=== PATIENT | female | born 1985 | race Hispanic/Latino ===

== ENCOUNTER 2020-09-11 06:35 | Emergency (ER) | payer MEDICAID ==
[2020-09-11 06:51] VITALS: BP 112/65
[2020-09-11 07:37] LABS: Basophils % (Auto) 0.7 % (0.0-1.8); Eosinophils # (Auto) 0.3 K/mm3 (0.0-0.4); Eosinophils % (Auto) 4.4 % (0.0-4.3); Hematocrit 40.8 % (30.3-42.9); Hemoglobin 14.1 gm/dl (10.1-14.3); Lymphocytes # (Auto) 1.7 K/mm3 (1.2-5.4); Lymphocytes % (Auto) 26.6 % (13.4-35.0); Mean Corpuscular HGB Conc 35 % (30-34); Mean Corpuscular Volume 101 fl (79-97); Monocytes # (Auto) 0.6 K/mm3 (0.0-0.8); Monocytes % (Auto) 8.7 % (0.0-7.3); Platelet Count 268 K/mm3 (140-440); Red Blood Count 4.05 M/mm3 (3.65-5.03); Red Cell Distribution Width 12.3 % (13.2-15.2)
[2020-09-11 07:46] LABS: Bilirubin,Urine NEG (Negative); Blood,Urine LG (Negative); Color,Urine Yellow (Yellow); Hyaline Casts,Urine 1 /LPF; Mucus,Urine FEW /HPF; Protein,Urine <15 mg/dL mg/dL (Negative); Urobilinogen,Urine < 2.0 mg/dL (<2.0)
--- NOTE | 2020-09-11 07:53 | Emergency Department Report ---
ED Female HPI - General Chief complaint: Vaginal Bleeding Stated complaint: TUBES TIDE//HEAVY BLEEDING/PAIN Time Seen by Provider: 09/11/20 07:51 Source: patient Mode of arrival: Ambulatory Limitations: No Limitations - History of Present Illness Initial comments: Patient is a pleasant 35-year-old that comes to the emergency room because she was told that she was yesterday. She states that her SENIOR HUMAN RESOURCES REPRESENTATIVE told her this. She states that this is after having a urine test. However, the patient had a tubal numerous years ago. So she comes to the ER to validate the . For she is also having menstrual bleeding. Patient denies any dysuria. She denies any vaginal discharge. She denies back pain or abdominal pain. Patient is ambulatory nontoxic and [id number] on arrival to the ER. -: Gradual, days(s) Improves with: none Worsens with: none Associated Symptoms: denies other symptoms - Related Data Sexually active: Yes Allergies Allergy/AdvReac Type Severity Reaction Status Date / Time No Known Allergies Allergy Verified 08/06/15 11:42 ED Review of Systems ROS: Stated complaint: TUBES TIDE//HEAVY BLEEDING/PAIN Other details as noted in HPI Comment: All other systems reviewed and negative ED Past Medical Hx - Past Medical History Previous Medical History?: Yes Hx Hypertension: No Hx Headaches / Migraines: Yes (occas migraine) Hx Kidney Stones: Yes Hx Psychiatric Treatment: Yes (bipolar and anxiety noncompliant 10 years ago) Hx Asthma: No - Surgical History Past Surgical History?: Yes Additional Surgical History: Tubal Ligation 5 years ago - Family History Family history: no significant - Social History Smoking Status: Current Every Day Smoker Substance Use Type: None ED Physical Exam - General Limitations: No Limitations General appearance: alert, in no apparent distress - Head Head exam: Present: atraumatic, normocephalic - Eye Eye exam: Present: normal appearance - ENT ENT exam: Present: mucous membranes moist - Neck Neck exam: Present: normal inspection - Respiratory Respiratory exam: Present: normal lung sounds bilaterally. Absent: respiratory distress - Cardiovascular Cardiovascular Exam: Present: regular rate, normal rhythm. Absent: systolic murmur, diastolic murmur, rubs, gallop - GI/Abdominal GI/Abdominal exam: Present: soft, normal bowel sounds - Extremities Exam Extremities exam: Present: normal inspection - Back Exam Back exam: Present: normal inspection - Neurological Exam Neurological exam: Present: alert, oriented X3 - Psychiatric Psychiatric exam: Present: normal affect, normal mood - Skin Skin exam: Present: warm, dry, intact, normal color. Absent: rash ED Course Vital Signs 09/11/20 06:50 Temperature 98.8 F Pulse Rate 84 Respiratory 20 Rate Blood Pressure 112/65 [Right] O2 Sat by Pulse 98 Oximetry ED Medical Decision Making - Lab Data Result diagrams: 09/11/20 07:21 09/11/20 08:03 - Radiology Data Radiology results: report reviewed, image reviewed - Medical Decision Making Labs 09/11/20 09/11/20 09/11/20 07:21 07:21 07:21 WBC 6.4 RBC 4.05 Hgb 14.1 Hct 40.8 MCV 101 H MCH 35 H MCHC 35 H RDW 12.3 L Plt Count 268 Lymph % (Auto) 26.6 Stanton % (Auto) 8.7 H Eos % (Auto) 4.4 H Baso % (Auto) 0.7 Lymph # (Auto) 1.7 Stanton # (Auto) 0.6 Eos # (Auto) 0.3 Baso # (Auto) 0.0 Seg Neutrophils % 59.6 Seg Neutrophils # 3.8 Sodium Potassium Chloride Carbon Dioxide Anion Gap BUN Creatinine Estimated GFR BUN/Creatinine Ratio Glucose Calcium HCG, Quant 3.38 Urine Color Urine Turbidity Urine pH Ur Specific [place] Urine Protein Urine Glucose (UA) Urine Ketones Urine Blood Urine Nitrite Urine Bilirubin Urine Urobilinogen Ur Leukocyte Esterase Urine WBC (Auto) Urine RBC (Auto) U Epithel Cells (Auto) Hyaline Casts Urine Mucus Blood Type O POSITIVE 09/11/20 09/11/20 08:03 Unknown WBC RBC Hgb Hct MCV MCH MCHC RDW Plt Count Lymph % (Auto) Stanton % (Auto) Eos % (Auto) Baso % (Auto) Lymph # (Auto) Stanton # (Auto) Eos # (Auto) Baso # (Auto) Seg Neutrophils % Seg Neutrophils # Sodium 140 Potassium 4.1 Chloride 104.2 Carbon Dioxide 26 Anion Gap 14 BUN 12 Creatinine 0.8 Estimated GFR > 60 BUN/Creatinine Ratio 15 Glucose 89 Calcium 9.3 HCG, Quant Urine Color Yellow Urine Turbidity Clear Urine pH 5.0 Ur Specific [place] 1.016 Urine Protein <15 mg/dl Urine Glucose (UA) Neg Urine Ketones Neg Urine Blood Lg Urine Nitrite Neg Urine Bilirubin Neg Urine Urobilinogen < 2.0 Ur Leukocyte Esterase Neg Urine WBC (Auto) 3.0 Urine RBC (Auto) 65.0 U Epithel Cells (Auto) 2.0 Hyaline Casts 1 Urine Mucus Few Blood Type Vital Signs 09/11/20 06:50 Temperature 98.8 F Pulse Rate 84 Respiratory 20 Rate Blood Pressure 112/65 [Right] O2 Sat by Pulse 98 Oximetry Quant hCG is less than 5. Labs noted. UA noted. Ultrasound noted to be normal. Patient being discharged home with discharge plan of care. Have given her referral to a new SENIOR HUMAN RESOURCES REPRESENTATIVE and encouraged her to follow-up with them next week to follow her given this conflicting test. She verbalizes understanding. On dis charge she is ambulatory, nontoxic [id number]. - Differential Diagnosis RO PREG/AB/UTERINE FIBROID Critical care attestation.: If time is entered above; I have spent that time in minutes in the direct care of this critically ill patient, excluding procedure time. ED Disposition Clinical Impression: Menses painful Disposition: - TO HOME OR SELFCARE Is pt being admited?: No Does the pt Need Aspirin: No Condition: Stable Instructions: Dysmenorrhea Additional Instructions: BLOOD PREG NEGATIVE ULTRASOUND NEGATIVE/NORMAL FOLLOW UP WITH OBGYN Referrals: FAMILIA WATERS MD [Staff Physician] - 3-5 Days Time of Disposition: 10:27
[2020-09-11 08:39] LABS: BUN/Creatinine Ratio 15; Blood Urea Nitrogen 12 mg/dL (7-17); Calcium 9.3 mg/dL (8.4-10.2); Hemolysis Index 8
--- NOTE | 2020-09-11 09:53 | Ultrasound Report ---
ULTRASOUND PELVIS INDICATION: Unspecified abdominal pain. TECHNIQUE: Transabdominal. Duplex Color Doppler used: Yes. COMPARISON: None available FINDINGS: Uterus: Present. Size: 7.4 x 4.0 x 4.7 cm. Endometrial complex: Normal measuring 0.7 cm. Mass lesions: None. Additional findings: None. Right Ovary: Size: 3.0 x 1.3 x 2.9 cm Blood flow: Normal. Cyst or mass: None. Left Ovary: Size: 2.2 x 1.7 x 1.8 cm Blood flow: Normal. Cyst or mass: None. Urinary Bladder: Normal. Free Fluid: None. Additional Findings: None. IMPRESSION: 1. No significant sonographic abnormality of the pelvis. Signer Name: Pantera Sierra MD Signed: 09/11/2020 9:49 AM Workstation Name: [id number]
== END 2020-09-11 11:30 | disposition home or self-care (01) ==
LOC: ED 06:35
DX: N94.6 Dysmenorrhea, unspecified (principal); F17.200 Nicotine dependence, unspecified, uncomplicated; F31.9 Bipolar disorder, unspecified; F41.9 Anxiety disorder, unspecified; G43.909 Migraine, unspecified, not intractable, without status migrainosus; Z98.51 Tubal ligation status
CPT/HCPCS: 36415; 76856; 80048; 81001; 84702; 85025; 86900; 86901